=== PATIENT | male | born 1985 | race Caucasian/White ===

== ENCOUNTER 2023-01-21 06:36 | Emergency (ER) | payer BC, SELFPAY ==
[2023-01-21 06:49] VITALS: BP 132/101; PULSE 70; RESP 16; TEMP 36.6; O2SAT 95
--- NOTE | 2023-01-21 07:42 | ED.EYEPROB ---
HPI - Eye Problem General Chief complaint: Eye Problems Stated complaint: something in my eye Time Seen by Provider: 01/21/23 07:00 History of Present Illness HPI Narrative: Patient is a 37-year-old male who presents ER with pain to the right upper eyelid. Began around 430 this morning. Worse with blinking and movement. Feels like there is something underneath eyelid. He has been having this issue intermittently over the last year. He is scheduled to follow-up with an eye doctor this week. No flashers or floaters. When he is not having pain he has normal vision. Otherwise it is blurred from tearing. He has had no trauma to the eye. He has not been welding or using a external grinder. He tried flushing his eye without improvement. Related Data Allergies Allergy/AdvReac Type Severity Reaction Status Date / Time Cephalosporins Allergy Mild Verified 12/28/15 21:11 Review of Systems Constitutional: Constitutional: Denies chills and Denies fever(s) Eyes: Eyes: Denies change in vision and Denies photophobia Comments: right upper eyelid pain, tearing ENT: Reports system reviewed and no additional complaints, except as documented PMFSH Past Medical History Medical History (Updated 01/21/23 @ 08:23 by Omar Tubbs MD) Healthy adult male Surgical History Surgical History (Updated 01/21/23 @ 08:23 by Omar Tubbs MD) No pertinent past surgical history Exam Narrative: GENERAL: Well-appearing, well-nourished, and in no acute distress. HEAD: Normocephalic, atraumatic. EYES: PERRL and EOMI. right upper lid with redness over the mucous membrane but not on the external aspect of the eyelid. No obvious stye noticed along the lid margin. Tetracaine/fluorescein/magnification used to visualize the right cornea/sclera and no foreign body or abrasion identified. No evidence of episcleritis. ENT: Mucous membranes moist. NEURO: Alert and oriented x3. PSYCH: Normal mood and affect. Course Course Emergency Course: Patient has moderate improvement of symptoms after topical tetracaine and manipulation eyelid. Discussed diagnosis and treatment plan. Patient already has follow-up scheduled this week to see his eye doctor. Vital Signs Vital signs: Vital Signs Temperature 97.9 F 01/21/23 06:49 Pulse Rate 70 01/21/23 06:49 Respiratory Rate 16 01/21/23 06:49 Blood Pressure 132/101 H 01/21/23 06:49 Pulse Oximetry 95 01/21/23 06:49 Oxygen Delivery Room Air 01/21/23 06:49 Temperature 97.9 F 01/21/23 06:49 Pulse Rate 60 01/21/23 07:57 Respiratory Rate 16 01/21/23 07:57 Blood Pressure 124/90 01/21/23 07:57 Pulse Oximetry 97 01/21/23 07:57 Oxygen Delivery Room Air 01/21/23 06:49 Discharge Plan Discharge Clinical Impression: Chalazion of right upper eyelid Patient Disposition: Home, Self-Care Condition: Stable Instructions: Antibiotic Form, June (ED) Additional Instructions: To treat your symptoms apply warm compresses at home, use topical antibiotic that is prescribed, and take anti-inflammatory pain medication. Return the ER if you cannot see, you have fever over 100.4 ?F, you have additional concerns. Prescriptions: New naproxen 375 mg tablet 375 mg PO BID Qty: 14 0RF erythromycin 5 mg/gram (0.5 %) ointment 0.5 inch RIGHT EYE QID Qty: 3.5 0RF Follow-up/Referrals: Jan Tejada MD [Primary Care Provider] - Stand Alone Forms: Work/School Release IP
[2023-01-21] MEDS: HYDROcodone/acetaminophen (*CRX) 5-325 MG TABLET 1 TAB PO (07:50)
[2023-01-21 07:57] VITALS: BP 124/90; PULSE 60; RESP 16; O2SAT 97
== END 2023-01-21 07:59 | disposition home or self-care (01) ==
PROVIDERS: Emergency Provider Emergency Medicine; PCP Family Medicine
DX: H00.11 Chalazion right upper eyelid (principal)
CPT/HCPCS: 99283; A9270